=== PATIENT | male | born 1995 | race Caucasian/White ===

== ENCOUNTER 2025-06-09 21:54 | Emergency (ER) | payer BC, SELFPAY ==
[2025-06-09 22:03] VITALS: BP 181/76; PULSE 68; RESP 18; TEMP 36.8; O2SAT 99; BMI 28.5
--- NOTE | 2025-06-09 22:21 | CRLHL7_ITS ---
For Patients: As a result of the Century Cures Act, medical imaging exams and procedure reports are released immediately into your electronic medical record. You may view this report before your referring provider. If you have questions, please contact your health care provider. INDICATION: Left-sided chest pain. TECHNIQUE: Chest 2 views. COMPARISON: None. FINDINGS: Cardiovascular and mediastinum: Heart size and vasculature are normal in caliber and appearance. Lungs and pleural spaces: Lungs are clear. No sign of infiltrate or mass. No sign of pleural effusion. No pneumothorax. Bones and soft tissues: No significant findings. IMPRESSION: No acute cardiopulmonary abnormality. Dictated by Simba Mosley MD @ 06/09/2025 11:03:09 PM (Electronically Signed)
--- NOTE | 2025-06-09 22:26 | ED.CHESTPAIN ---
HPI - Chest Pain General Date Seen: 06/09/25 Chief Complaint: Chest Pain Stated Complaint: chest pain/fam history Afib Time Seen by Provider: 06/09/25 21:55 Source: patient Mode of arrival: ambulatory Limitations: no limitations History of Present Illness HPI narrative: Patient is a 29-year-old male presenting to the emergency department for left-sided chest pain. States over the years he will have intermittent chest pain like this but states he was getting better after he lost a lot a weight. Today though he became concerned because he had 4 episodes of left-sided chest pain that felt like a dull ache that lasted between 5 and 15 minutes each. 1st 1 occurred at 14:30 most recent 1 occurred around 20:00. Is concerned because he has a strong family history of AFib with his sister being diagnosed with that around his age. He also states his father has AFib. It is currently is asymptomatic. Denies any shortness of breath. No history of blood clots, hemoptysis, cancer, recent surgeries, hormone use, recent travel. He was in class when this occurred and was not exerting himself at all. Denies fevers, chills, sick contacts, abdominal pain, headache, lightheadedness, dizziness. No other concerns noted. Related Data Home Medications ?Medication ?Instructions ?Recorded ?Confirmed No Known Home Medications 06/09/25 06/09/25 Allergies Allergy/AdvReac Type Severity Reaction Status Date / Time No Known Drug Allergies Allergy Verified 06/09/25 22:05 Review of Systems Status of ROS Reports: 10 or more systems reviewed and unremarkable except as noted in History and below [facility] Medical History No significant past medical history Surgical History No significant past surgical history Social History Smoking Status: Never smoker Second hand tobacco smoke exposure: No How often do you have a drink containing alcohol: never AUDIT-C Alcohol total score: 0 Non-prescribed substance use: denies use Exam Narrative Exam Narrative: Const: Well-nourished, Well-developed, in no distress Eyes: PERRL, no conjunctival injection, and symmetrical lids HENT: Atraumatic external nose and ears. Moist mucous membranes. Neck: Symmetric, trachea midline, No thyromegaly. CVS: RRR, No murmurs or gallops. Peripheral pulses 2+ and equal in all extremities RESP: Unlabored respiratory effort. Clear to auscultation bilaterally. GI: Nontender/Nondistended, No rebound or guarding. MSK:Extremities w/o deformity, Normal Active ROM Skin: Warm, Dry. No rashes or lesions. Neuro: Normal Muscle tone, No focal neurological deficits. Psych: Awake, Alert, & Oriented x3. Appropriate mood and affect. Const Vital Signs, click to edit/add: Vital Signs - 24 hr 06/09/25 22:03 06/09/25 22:32 06/09/25 23:01 Temperature 98.2 F Pulse Rate 63 61 Pulse Rate [Right Pulse Oximeter] 68 Respiratory Rate 18 18 20 Blood Pressure 127/71 120/80 Blood Pressure [Right Upper Arm] 181/76 H Pulse Oximetry 99 97 97 Oxygen Delivery Method Room Air Course Vital Signs Vital signs: Initial Vital Signs Temperature 98.2 F 06/09/25 22:03 Temperature Source Temporal Artery Scan 06/09/25 22:03 Pulse Rate 68 06/09/25 22:03 Pulse Rhythm Regular 06/09/25 22:03 Pulse Strength 3+ Normal 06/09/25 22:03 Respiratory Rate 18 06/09/25 22:03 Blood Pressure 181/76 H 06/09/25 22:03 Blood Pressure Mean 111 H 06/09/25 22:03 Blood Pressure Position Sitting 06/09/25 22:03 Pulse Oximetry 99 06/09/25 22:03 Oxygen Delivery Method Room Air 06/09/25 22:03 Vital Signs Temperature 98.2 F 06/09/25 22:03 Pulse Rate 68 06/09/25 22:03 Respiratory Rate 18 06/09/25 22:03 Blood Pressure 181/76 H 06/09/25 22:03 Pulse Oximetry 99 06/09/25 22:03 Oxygen Delivery Method Room Air 06/09/25 22:03 Temperature 98.2 F 06/09/25 22:03 Pulse Rate 61 06/09/25 23:01 Respiratory Rate 20 06/09/25 23:01 Blood Pressure 120/80 06/09/25 23:01 Pulse Oximetry 97 06/09/25 23:01 Oxygen Delivery Method Room Air 06/09/25 22:03 MDM - Chest Pain MDM Narrative Medical decision making narrative: Patient is a 29-year-old male presenting to the emergency department for chest pain. The differential diagnosis of chest pain is broad and includes common etiologies such as musculoskeletal strain, GERD, pneumonia, etc. More serious etiologies considered include PE, coronary artery disease, pneumothorax, aortic dissection, aortic aneurysm. PERCed is negative so PE can not be ruled out. He has stable vital signs my concern for aortic dissection or aortic aneurysm are low. Will order EKG and troponin to look for cardiac abnormalities. Chest x-ray or to look for signs pneumonia or pneumothorax. Also order CBC, BMP, magnesium. Patient's lab work returned showing no acute concerning abnormalities. Patient's chest x-ray independently reviewed by myself and the radiologist shows no acute concerning abnormalities. While wearing heart monitor he did have an episode of non sustained ventricular tachycardia with 6 PVCs in a row. No further episodes like this occurred. His EKG did show multiple PVCs but no other concerning abnormalities. Considering all this I do believe he is safe for discharge but I will have him wear a Zio patch. I informed him to follow up with his primary care provider about this. He is agreeable to this plan. Was satting in the high 90s throughout his time in the emergency department Lab Data Labs: Lab Results 06/09/25 06/09/25 06/09/25 Range/Units 20:28 22:20 22:24 WBC 7.44 (4.50-11.00) K/uL RBC 5.03 (4.30-5.90) m/uL Hgb 14.8 (13.5-17.5) gm/dL Hct 44.7 (37.0-53.0) % MCV 89 (80-100) fL MCH 29 (26-34) pg MCHC 33 (32-36) gm/dL RDW Coeff of Juan C 12.1 (11.5-15.5) % Plt Count 238 (140-440) K/uL Neut % (Auto) 44.0 (42.0-72.0) % Lymph % (Auto) 41.7 (20-44) % [place] % (Auto) 8.6 (0.0-11.0) % Eos % (Auto) 4.4 (0.0-7.0) % Baso % (Auto) 0.9 (0.0-3.0) % Neut # (Auto) 3.27 (1.7-7.0) K/uL Lymph # (Auto) 3.10 H (0.90-2.90) K/uL [place] # (Auto) 0.60 (0.00-0.90) K/UL Eos # (Auto) 0.33 (0.00-0.50) K/uL Baso # (Auto) 0.07 (0.00-0.30) K/uL Abs Immat Gran (auto) 0.03 (0.00-0.30) K/uL Imm/Tot Granulo (auto) 0.4 % Sodium 137 (135-149) mmol/L Potassium 4.2 (3.6-5.1) mmol/L Chloride 102 (96-114) mmol/L Carbon Dioxide 28 (20-32) mmol/L Anion Gap 7 (7-15) mEq/L BUN 17 (5-24) mg/dL Creatinine 0.8 (0.5-1.5) mg/dL Estimated Creat Clear 151.20 Estimated GFR 121 ml/min Glucose 96 (60-115) mg/dL Calcium 9.9 (8.4-10.6) mg/dL Magnesium 1.9 (1.5-2.6) mg/dL POC Troponin I 0.01 (0.01-0.04) ng/ml Imaging Data Chest x-ray: Attestation: I have reviewed the pertinent imaging results. Radiologist's impression: No acute cardiopulmonary abnormality. Dictated by Simba Mosley MD @ 06/09/2025 11:03:09 PM ECG Data Attestation: I personally reviewed and interpreted this ECG as follows: Prior ECG tracings: not available for review Interpretation: Normal sinus rhythm with frequent and occasional consecutive premature ventricular complexes, normal intervals, normal axis, no ST or T-wave abnormalities. Discharge Plan Discharge Clinical Impression: Atypical chest pain, Premature ventricular contractions Patient Disposition: Home, Self-Care Condition: Stable Instructions: Zio (Home Heart Monitor) Additional Instructions: I do not see any acute emergent issues but I will place a Zio patch which she will wear for the next 14 days. Call your primary care provider in the morning and let them know this was placed and that he will need follow-up. Please return to the emergency department immediately for new or worsening symptoms. Prescriptions: No Action No Known Home Medications Follow Up/Referrals: Rasahd Blackmon MD [Referring, Family Practice] Stand Alone Forms: [employer] Info Instructions
[2025-06-09 22:32] VITALS: BP 127/71; PULSE 63; RESP 18; O2SAT 97
[2025-06-09 22:40] LABS: Hematocrit* 44.7 % (37.0-53.0); Hemoglobin* 14.8 gm/dL (13.5-17.5); Immature Granulocytes Abs Auto 0.03 K/uL (0.00-0.30); Immature Granulocytes Pct Auto 0.4 %; Lymphocytes Absolute Auto 3.10 K/uL (0.90-2.90); Mean Corpuscular HGB Conc 33 gm/dL (32-36); Mean Corpuscular Hemoglobin 29 pg (26-34); Mean Corpuscular Volume 89 fL (80-100); RDW Coefficient of Variation % 12.1 % (11.5-15.5); Red Blood Count* 5.03 m/uL (4.30-5.90); White Blood Count* 7.44 K/uL (4.50-11.00)
[2025-06-09 22:44] LABS: Chloride* 102 mmol/L (96-114); Sodium* 137 mmol/L (135-149)
[2025-06-09 22:44] LABS: Slide Review Reflex No
[2025-06-09 22:45] LABS: Potassium* 4.2 mmol/L (3.6-5.1)
[2025-06-09 22:47] LABS: Anion Gap 7 mEq/L (7-15); Blood Urea Nitrogen* 17 mg/dL (5-24); Carbon Dioxide* 28 mmol/L (20-32); Creatinine* 0.8 mg/dL (0.5-1.5); Est. Creatinine Clearance* 151.20; Estimated Glomerular Filt Rate 121 ml/min
[2025-06-09 22:53] LABS: Troponin, Point-of-Care* 0.01 ng/ml (0.01-0.04)
[2025-06-09 23:00] LABS: Calcium* 9.9 mg/dL (8.4-10.6); Glucose* 96 mg/dL (60-115)
[2025-06-09 23:01] VITALS: BP 120/80; PULSE 61; RESP 20; O2SAT 97
[2025-06-09 23:24] VITALS: BP 124/74; PULSE 64; RESP 20; TEMP 36.8; O2SAT 97
[2025-06-09 23:27] VITALS: BP 124/74; PULSE 64; RESP 20; TEMP 36.8
== END 2025-06-09 23:32 | disposition home or self-care (01) ==
PROVIDERS: Emergency Provider Student in an Organized Health Care Education/Training Program
DX: R07.9 Chest pain, unspecified (principal); I49.3 Ventricular premature depolarization
CPT/HCPCS: 36415; 71046; 80048; 83735; 84484; 85025; 93005; 93246; 99284